=== PATIENT | female | born 1945 | race Caucasian/White ===

== ENCOUNTER → 2021-12-09 | Outpatient (CLI) | payer OTHER, SELFPAY ==
--- NOTE | 2021-12-09 11:59 | CT_ITS ---
STUDY: CT BRAIN WITHOUT CONTRAST REASON FOR EXAM: Female, 76 years old. Fall w/ questionable LOC. Right-sided pain. RADIATION DOSAGE (If Supplied By Facility): CTDIvol = ( 44.99 ) mGy, DLP = ( 796.11 ) mGycm TECHNIQUE: Transaxial CT imaging of the brain was performed without administration of intravenous contrast material. Individualized dose optimization techniques were used for this CT. COMPARISON: No relevant priors. FINDINGS: Normal soft tissue structures. Normal calvarium. Normal size ventricles and extra-axial spaces for the patient''s age. Normal white matter tracts of the cerebral hemispheres. Normal basal ganglia and thalami. Normal brainstem. Normal cerebellum. There is no intracranial hemorrhage. There are no findings of an acute ischemic infarction. Normal visualized paranasal sinuses. CT/Brain/Head without Contrast IMPRESSION: Normal unenhanced CT scan of the brain. Electronically Signed: Erik Jeong MD at 12:34 EDT ,
--- NOTE | 2021-12-09 11:59 | CT_ITS ---
STUDY: CT CERVICAL SPINE WITHOUT CONTRAST REASON FOR EXAM: Female, 76 years old. Fall -- without contrast RADIATION DOSAGE (If Supplied By Facility): CTDIvol = ( 25.00 ) mGy, DLP = ( 626.05 ) mGycm TECHNIQUE: High resolution transaxial imaging was performed without contrast material. Sagittal and coronal images were reconstructed. Individualized dose optimization techniques were used for this CT. COMPARISON: None FINDINGS: Normal craniovertebral junction. There are degenerative changes of the anterior atlantoaxial articulation. Normal odontoid process. Normal cervical lordosis. Normal vertebral bodies and posterior osseous elements. C2-3: Facet joint osteoarthritis and hypertrophy worse on the left side. No significant stenosis seen. C3-4: Normal endplates. Normal disc height and morphology. Normal central canal and intervertebral neuroforamina. C4-5: Moderate degree of disc space narrowing. Anterior spondylosis. Facet joint osteoarthritis and hypertrophy worse on the left side. No significant stenosis is seen. C5-6: Marked degree of disc space narrowing. Anterior and posterior spondylosis with uncovertebral arthrosis. There is evidence of bilateral neural foraminal stenosis worse on the right side. Mild degree of central canal stenosis due to posterior spondylosis. C6-7: Mild degree of disc space narrowing. Spondylosis. Facet joint osteoarthritis and hypertrophy. C7-T1: Normal endplates. Normal disc height and morphology. Normal central canal and intervertebral neuroforamina. Atherosclerotic plaque formation of the carotid bifurcations. CT/Spine Cervical without Contras IMPRESSION: Multilevel degenerative changes, as described above. Electronically Signed: Erik Jeong MD at 12:39 EDT ,
== END | disposition home or self-care (01) ==
PROVIDERS: PCP Family Medicine; Visit Provider Physician Assistant
DX: Z04.3 Encounter for examination and observation following other accident (principal)
CPT/HCPCS: 70450; 72125

== ENCOUNTER → 2022-01-25 | Outpatient (CLI) | payer OTHER, SELFPAY ==
--- NOTE | 2022-01-25 06:46 | MRI_ITS ---
STUDY: MRI RIGHT SHOULDER REASON FOR EXAM: Female, 76 years old. injury --injury decreased rom and arm strength after fall TECHNIQUE: Standardized fat and water weighted pulse sequences were obtained in all 3 orthogonal planes. Mild motion artifact is present. COMPARISON: None. FINDINGS: Large full-thickness tears of the supraspinatus and infraspinatus tendons are present, resulting in retraction of the supraspinatus tendon 4.13 cm from the greater tuberosity. The humeral head is also high riding directly abutting the undersurface of the acromium due to the full-thickness tears. A small glenohumeral joint effusion is present as well. Normal subscapularis tendon. There is teres minor tendinosis with tendon attrition but without a demonstrated supraspinatus tendon tear. A small amount of fluid is also seen around the short head of the brachial brachialis muscle. There is moderate muscular atrophy of the supraspinatus muscle. There is moderate muscular atrophy of the infraspinatus muscle. Normal subscapularis muscle. Normal teres minor muscle. Normal humeral head and visualized proximal humerus. The intracapsular aspect along head of the biceps tendon is completely torn. Normal labrum. Normal capsulo- ligamentous complex. Normal rotator interval. There is moderate osteoarthritis of the acromioclavicular articulations. There is a Type II morphology (curved), with a neutral orientation. There is fluid distention of the subacromial-subdeltoid bursa, which communicates with the glenohumeral joint, through a rotator cuff tear. Normal visualized coracohumeral and coracoacromial ligaments. Normal quadrilateral space. Normal axillary space. Normal deltoid muscle. Normal trapezius muscle. MRI/Upper Ext Joint Only(Routine) IMPRESSION: 1. Large full-thickness tears of the infraspinatus and supraspinatus muscles with high riding of the humeral head abutting the undersurface of the acromium. 2. Tear of the intracapsular aspect of the long head of biceps tendon Electronically Signed: Miguel Morris MD at 13:55 EDT ,
--- NOTE | 2022-01-25 06:46 | MRI_ITS ---
STUDY: MRI LEFT SHOULDER REASON FOR EXAM: Female, 76 years old. injury decreased rom and arm strength after fall TECHNIQUE: Standardized fat and water weighted pulse sequences were obtained in all 3 orthogonal planes. COMPARISON: None. FINDINGS: There are large full-thickness tears of the infraspinatus and supraspinatus tendons, as well as the lateral and superior aspect of the teres minor. The supraspinatus tendon is retracted to the level of the biceps labral complex, which is 5.36 cm proximal to the greater tuberosity. High-grade tendinopathy and partial tearing of the superior lateral fibers of the subscapularis tendon is also present. The humeral head is high riding abutting the undersurface of the acromium. A small to moderate size joint effusion is also present. The intracapsular aspect along head of the biceps tendon is partially torn and markedly thin and. Partial tearing and thinning of the biceps tendon within the bicipital groove/upper arm is also visualized. There is severe muscular atrophy of the supraspinatus muscle. There is moderate muscular atrophy of the infraspinatus muscle. There is mild muscular atrophy of the subscapularis muscle. There is moderate muscular atrophy of the teres minor muscle. Normal humeral head and visualized proximal humerus. Normal biceps labral complex. There is labral degeneration with blunting of the syd, but there is no demonstrated discrete labral tear. Normal capsulo- ligamentous complex. Normal rotator interval. There is mild osteoarthritis of the acromioclavicular articulation. There is a Type II morphology (curved), with a neutral orientation. There is fluid distention of the subacromial-subdeltoid bursa, which communicates with the glenohumeral joint, through a rotator cuff tear. Normal visualized coracohumeral and coracoacromial ligaments. Normal quadrilateral space. Normal axillary space. Normal deltoid muscle. Normal trapezius muscle. MRI/Upper Ext Joint Only(Routine) IMPRESSION: 1. Large full-thickness tears of the supraspinatus, infraspinatus, and teres minor 2. Partial tearing and high-grade tendinosis of the subscapularis tendon 3. Partial tearing and attrition of the biceps tendon 4. High riding humeral head abutting the undersurface of the acromium Electronically Signed: Miguel Morris MD at 10:04 EDT Reading Location ID and State: [facility] / [place] , Service support ,
== END | disposition home or self-care (01) ==
LOC: MRI 06:46
PROVIDERS: PCP Family Medicine; Visit Provider Nurse Practitioner
DX: S46.811A Strain of other muscles, fascia and tendons at shoulder and upper arm level, right arm, initial encounter (principal); S46.111A Strain of muscle, fascia and tendon of long head of biceps, right arm, initial encounter; S46.812A Strain of other muscles, fascia and tendons at shoulder and upper arm level, left arm, initial encounter; S46.112A Strain of muscle, fascia and tendon of long head of biceps, left arm, initial encounter; W19.XXXA Unspecified fall, initial encounter
CPT/HCPCS: 73221

== ENCOUNTER 2022-03-24 10:00 | Outpatient (RCR) | payer OTHER, SELFPAY ==
--- NOTE | 2022-03-09 11:33 | HP.PTEVAL_ITS ---
Patient's Visit Information ASHLEY SPRAGUE is a 76 year old F referred to Physical Therapy by Dr. Terrell Barroso MD with a diagnosis of Bilateral OA and RTC Tears. Date of Evaluation: 03/09/22 Physical Therapist: Manuela Haynes DPT - Visit Plan Frequency: 2x /Week Duration: 4 Weeks Plan: Gentle- Focus on ROM and scapular s/s with functional mobility - Subjective She fell December 08, 2021 at work- she works for [email or web address] and she fell in the yard. She hit her right shoulder on the house and then her left on the ground. She was told she could return to light duty- but they have not been able to follow her precautions. Right is the worst- and she is right handed. When she is driving she is holding the bottom of the steering wheel. Pain is located along the deltoid and radiates to the elbow. She knows that she has RTC tear a nd arthritis. Hurts to put a bra on. Does have N/T in both sides but right is worse. Pain is consistent. Worst: 8-04/02 She has hardness and bruising in the right- they are calling it a hematoma. She has pain on the left side along the deltoid. Sleep: disturbed only 2-3 hours a night. Worst: 8-04/02. Agg: movement. Eases: warm bathes and Epsom salt. 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 She is unable to wash her own hair and its hard to get dressed. She has been having headaches due to hitting her head when she fell- no increase in neck pain, blurred vision or dizziness. She has had both x-rays and MRI's of the shoulders. She has had injections in her shoulder- dulled the pain for about 3 days- did not help with movement and it wore off quickly. PMHx/Meds: no changes since saw Dr. Barroso. - Objective SEVER Guarding of bilateral UE due to pain. Posture: FH, RS- guarding of bilateral UE- unable to correct with verbal and tactile cues- reports too painful. Palpation: tender to light touch throughout scapula, GH joint and to the elbows- unable to palpate specific structures due to pain levels. ROM: Cervical: limited in all directions by 50% reports pain, Hand: WNL, Elbow: Supination to neutral only Flexion: 90 degrees, Shoulder: Right: flexion: 30 degrees, Abd/IR: refused to complete due to pain, Extn: 30 degrees, Er: 10 degrees, Left: flexion: 60 degrees, Abd/IR: refused to complete due to pain, Extn: 30 degrees, Er: 10 degrees- Unable to complete PROM due to pain and guarding. Sensation: hyper sensitive. Will try to get more measurements as PT progresses - Balance/Special Test Scores Quick DASH Score: [phone] - Goals Goal 1:: Patient will be I with HEP and progression Goal Time Frame: 4-6 Weeks Goal 2:: Patient will maintain proper posture t/o tx session to demo increased scap s/s Goal Time Frame: 4-6 Weeks Goal 3:: Patient will demo 90 degrees of ROM in the shoulders flexion/abduction Goal Time Frame: 4-6 Weeks Goal 4:: Patient will report ability to wash her hair Goal Time Frame: 4-6 Weeks Goal 5:: Patient will report 80% improvement Goal Time Frame: 4-6 Weeks - Rehabilitation Potential Physical Therapy Diagnosis: Patient presents with hypomobility- she has decreased UE and scapular s/s, ROM and muscular endurance leading to poor posture and increased pain with ADL's. - Anticipated Interventions Patient/Client Instruction: Educate patient on: Benefits of Fitness Program Therapeutic Exercise to Include: Strength training, Endurance training, Balance training, Coordination, Agility training, Body mechanics, Postural training, Flexibilty training, Neuromotor development, Passive ROM, Active ROM, Dynamic Lumbar Stabilization, Scapular Strength/Stabilization For the Purpose of:: To improve muscle performance and motor function Manual Therapy Techniques to Include: Passive ROM, Soft tissue mobilization TENS: Yes Cryotherapy (ice pack, ice massage): Yes Thermo therapy (hot pack): Yes Ultrasound (thermal/non thermal): No Thank you for the opportunity to evaluate your patient. For Medicare and Medicare HMO plans, please review the plan of care and approve it. It will need to be FAXED BACK to us at [phone] for Medicare purposes. For Medicare only, by signing this I certify the plan of care. Please let me know if there are questions or concerns regarding this plan of care. Physician Signature: Date:
--- NOTE | 2022-06-23 07:45 | HP.PT.NRP ---
ASHLEY SPRAGUE was seen in my office for initial evaluation on 03/09/22. The following Plan of Care was established for this patient: Initial Frequency: 2x /Week Initial Duration: 4 Weeks Patient/Client Instruction: Educate patient on: Benefits of Fitness Program Therapeutic Exercise to Include: Strength training, Endurance training, Balance training, Coordination, Agility training, Body mechanics, Postural training, Flexibilty training, Neuromotor development, Passive ROM, Active ROM, Dynamic Lumbar Stabilization, Scapular Strength/Stabilization For the Purpose of:: To improve muscle performance and motor function Manual Therapy Techniques to Include: Passive ROM, Soft tissue mobilization TENS: Yes Cryotherapy (ice pack, ice massage): Yes Thermo therapy (hot pack): Yes Ultrasound (thermal/non thermal): No This patient was last seen in our office . Pertinent comments regarding their Physical therapy will appear below: Patient has not attended physical therapy in over 30 days- appropriate to be discharged and return to the MD as needed. At this point I will be discontinuing this patient from physical therapy. I would be happy to see this patient again in the future if found appropriate by the physician. Thank you! Manuela Haynes, CARMENT Balance/Gait/Functional tests - Balance/Special Test Scores Quick DASH Score: [phone]
== END 2022-03-24 19:00 | disposition home or self-care (01) ==
LOC: PT 10:00
PROVIDERS: PCP Family Medicine; Referring Provider Orthopaedic Surgery Sports Medicine; Visit Provider Orthopaedic Surgery Sports Medicine
DX: M75.101 Unspecified rotator cuff tear or rupture of right shoulder, not specified as traumatic (principal); M12.811 Other specific arthropathies, not elsewhere classified, right shoulder; M12.812 Other specific arthropathies, not elsewhere classified, left shoulder; M75.102 Unspecified rotator cuff tear or rupture of left shoulder, not specified as traumatic
CPT/HCPCS: 97110; 97162

== ENCOUNTER → 2022-05-05 | Outpatient (CLI) | payer OTHER, SELFPAY ==
--- NOTE | 2022-05-05 07:12 | CT_ITS ---
STUDY: CT RIGHT SHOULDER REASON FOR EXAM: Female, 76 years old. ROTATOR CUFF TEAR RADIATION DOSAGE (If Supplied By Facility): CTDIvol = ( 25.98 ) mGy, DLP = ( 556.45 ) mGycm TECHNIQUE: The patient was scanned in a multi detector CT scanner. High resolution transaxial imaging was performed without the administration of intravenous contrast material. Sagittal and coronal images were reconstructed. Individualized dose optimization techniques were used for this CT. COMPARISON: MRI of the right shoulder dated January 25, 2022 FINDINGS: There is mild narrowing of the glenohumeral joint space with a small joint effusion. No fracture or displaced bony fragment is present. Several small loose bodies are seen in the posterior aspect of the glenohumeral joint capsule. The humeral head is high riding abutting the undersurface of the acromium consistent with full-thickness rotator cuff tearing. The rotator cuff tendons are not adequately evaluated by CT. Normal glenoid rim, neck and visualized scapula. Normal humeral head, neck and tuberosities. Normal coracoid process. Normal visualized lateral clavicle. There is moderate osteoarthritis with articular joint space narrowing and with osteoarthritic spurring. There is a Type II morphology (curved), with a neutral orientation. Normal visualized muscles and soft tissue structures. The visualized aspects of the right longer unremarkable. A moderate sized densely calcified right paratracheal lymph node is present. CT/Extremity Upper without Contra IMPRESSION: 1. Mild to moderate osteoarthritis of the shoulder joint. 2. The humeral head is high riding abutting the undersurface of the acromium consistent with full-thickness rotator cuff tearing. The rotator cuff tendons are not adequately evaluated by CT. Electronically Signed: Miguel Morris MD at 8:17 EDT ,
== END | disposition home or self-care (01) ==
LOC: CT 07:11
PROVIDERS: PCP Family Medicine; Referring Provider Specialist; Visit Provider Specialist
DX: M75.121 Complete rotator cuff tear or rupture of right shoulder, not specified as traumatic (principal)
CPT/HCPCS: 73200

== ENCOUNTER → 2022-12-05 | Outpatient (CLI) | payer OTHER, SELFPAY ==
[2022-12-05 08:08] LABS: Absolute Lymphocyte Count 4.98 X10^3/uL (0.83-4.51); Absolute Neutrophil Count 1.8 X10^3/uL (2.0-7.7); Basophil# 0.06 X10^3/uL; Basophil% 0.8 % (0-1); Eosinophil# 0.34 X10^3/uL; Eosinophils% 4.5 % (0-5); Hematocrit 38.6 % (37-47); Hemoglobin 12.4 g/dL (12.0-15.0); Lymphocyte # 4.98 X10^3/ul (0.83-4.51); Lymphocyte % 65.9 % (19-41); Mean Corp Hgb Conc 32.1 g/dL (32-36); Mean Corpuscular Hgb 29.6 pg (27.0-32.0); Mean Corpuscular Volume 92.1 fL (81-99); Mean Platelet Vol. 9.6 fl (6.2-12.0); Monocyte# 0.43 X10^3/uL; Monocyte% 5.7 % (0-10); NRBC Flagged by Analyzer 0 % (0-5); Neutrophil # 1.75 X10^3/uL (2.7-7.7); Neutrophil % 23.1 % (47-70); POSITIVE MORPHOLOGY YES; Platelet Count 272 K/mm3 (150-450); RBC Distribution Width CV 15.9 % (11.6-14.6); RBC Distribution Width SD 53.4 fl (35.1-43.9); Red Blood Count 4.19 M/mm3 (4.2-5.4); White Blood Count 7.6 K/mm3 (4.4-11.0)
[2022-12-05 08:12] LABS: Erythrocyte Sedimentation Rate 7 mm/hr (0-30)
[2022-12-05 08:25] LABS: Differential Indicated SCAN CRITERIA MET
[2022-12-05 08:27] LABS: CRP 8.11 mg/L (0.0-3.0)
[2022-12-05 09:05] LABS: Reactive Lymphocyte 1+
== END | disposition home or self-care (01) ==
LOC: LAB 07:31
PROVIDERS: PCP Family Medicine; Visit Provider Specialist
DX: M75.121 Complete rotator cuff tear or rupture of right shoulder, not specified as traumatic (principal); Z96.611 Presence of right artificial shoulder joint
CPT/HCPCS: 36415; 85025; 85652; 86140

== ENCOUNTER → 2023-03-08 | Outpatient (CLI) | payer OTHER, SELFPAY ==
--- NOTE | 2023-03-08 08:09 | CT_ITS ---
STUDY: CT RIGHT SHOULDER REASON FOR EXAM: Female, 77 years old. FRACTURE SUSPECTED IN PRESENCE OF RIGHT ARTIFICIAL JOINT. MAR USED RADIATION DOSAGE (If Supplied By Facility): CTDIvol = ( 24.98 ) mGy, DLP = ( 566.40 ) mGycm TECHNIQUE: The patient was scanned in a multi detector CT scanner. High resolution transaxial imaging was performed without the administration of intravenous contrast material. Sagittal and coronal images were reconstructed. Individualized dose optimization techniques were used for this CT. COMPARISON: Comparison is made with prior study dated May 05, 2022. FINDINGS: The patient is status post right reverse shoulder replacement. Normal glenoid rim, neck and visualized scapula. Normal humeral head, neck and tuberosities. Normal coracoid process. Normal visualized lateral clavicle. There is moderate osteoarthritis with articular joint space narrowing and with osteoarthritic spurring. There is a Type II morphology (curved), with a neutral orientation. Normal visualized muscles and soft tissue structures. CT/Extremity Upper without Contra IMPRESSION: Status post right reverse shoulder replacement. No fracture is seen. Degenerative arthrosis involving the acromioclavicular joint. Electronically Signed: Erik Jeong MD at 10:15 EDT ,
== END | disposition home or self-care (01) ==
PROVIDERS: PCP Family Medicine; Referring Provider Physician Assistant Surgical; Visit Provider Physician Assistant Surgical
DX: Z96.611 Presence of right artificial shoulder joint (principal)
CPT/HCPCS: 73200